=== PATIENT | female | born 1970 | race Caucasian/White ===

== ENCOUNTER 2020-01-29 14:30 | Emergency (ER) | payer BC, SELFPAY ==
[2020-01-29 14:45] VITALS: BP 167/97; PULSE 81; RESP 14; TEMP 36.8; O2SAT 98; BMI 45.4
--- NOTE | 2020-01-29 15:00 | XR_ITS ---
WS: [id number] Exam: XR chest 1V portable [id number] Date/Time of Exam: 01/29/2020 3:12 PM Reason For Exam: dyspnea/cough No priors. The lungs are clear and fully expanded. Normal cardiomediastinal structures and regional bony element s. No pleural effusion. XR/XR chest 1V portable [id number] IMPRESSION: 1. No acute cardiopulmonary finding.
--- NOTE | 2020-01-29 15:00 | ECG_ITS ---
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 Measurements Intervals [place] Rate: 79 P: 42 [place]: 167 QRS: 95 QRSD: 93 T: 28 QT: 390 QTc: 447 Interpretive Statements SINUS RHYTHM WITH SINUS ARRHYTHMIA BORDERLINE RIGHT AXIS DEVIATION [QRS AXIS > 90] LOW QRS VOLTAGE IN PRECORDIAL LEADS [QRS DEFLECTION < 1.0 mV IN CHEST LEADS] No previous ECG available for comparison Electronically Signed On 01-29-2020 18:27:59 PREVENTION SPECIALIST by Lynsey Gardner M.D. [id number]
--- NOTE | 2020-01-29 15:00 | CTR_ITS ---
PROCEDURE INFORMATION: Exam: CT Head Without Contrast Exam date and time: 01/29/2020 3:05 PM Age: 50 years old Clinical indication: Weakness, extremity and weakness, facial; Right; Prior surgery; Surgery type: Parotid; Patient HX: Onset of RT sided weakness yesterday. CO RT frontal temporal headache; Additional info: R side weakness TECHNIQUE: Imaging protocol: Computed tomography of the head without contrast. Radiation optimization: All CT scans at this facility use at least one of these dose optimization techniques: automated exposure control; mA and/or kV adjustment per patient size (includes targeted exams where dose is matched to clinical indication); or iterative reconstruction. Other technique: STROKE PROTOCOL was implemented. COMPARISON: No relevant prior studies available. RADIATION DOSE METRICS: Total DLP (mGy-cm): 756.88 FINDINGS: Brain: Normal. No hemorrhage. Unremarkable white matter. No mass effect. Cerebral ventricles: No ventriculomegaly. Bones/joints: Unremarkable. No acute fracture. Paranasal sinuses: Visualized sinuses are unremarkable. No fluid levels. Mastoid air cells: Visualized mastoid air cells are well aerated. Soft tissues: Unremarkable. CT/CT head wo con* [id number] IMPRESSION: No acute intracranial abnormality. ASSESSMENT: ASPECTS ([place] Stroke Program Early CT Score) is 10. Radiation Dose CTDIVOL = (mGy): DLP = 756.88 (mGy-cm)
--- NOTE | 2020-01-29 15:34 | ED_ITS ---
HPI - Neuro Symptoms/Deficit General: Chief Complaint: Neuro Symptoms/Deficit Stated Complaint: ref from urgent care/poss stroke Time Seen by Provider: 01/29/20 14:51 History of Present Illness: HPI Narrative: 50-year-old female presents emergency room with complaints of right-sided weakness this began yesterday she had some difficulty walking she is using a cane today initially it was her leg she said she got up and took a while and then with the assistance of a cane she could walk today with both the leg and the arm he also feels like she is stumbling over some of her words she also notes a little bit of visual difficulty but relates that to both eyes. She had single episode yesterday of feeling very sweaty not past has not recurred she denies any chest pain. She not had any flulike symptoms no dysuria urgency or frequency Onset (ago): day(s) Location: speech (Stumbling over words), right arm and right leg Severity: mild Quality: weak Relieving factors: none Exacerbating factors: none Context: sudden onset On Anticoagulants: No Associated symptoms: Reports weakness; Deny no associated symptoms, chest pain, cough, diaphoresis, fevers/chills, headache(s), anorexia, malaise, nausea, seizures, short of breath, syncope, tingling, vertigo or vomiting Review of Systems Const: Denies: malaise or diaphoresis ENMT: Denies: throat pain, ear or mastoid pain, nasal discharge or nasal congestion Card: Denies: chest pain or syncope Resp: Denies: dyspnea, productive cough or non-productive cough GI: Denies: nausea or vomiting : Denies: flank pain, difficulty voiding, dysuria, urinary frequency or urinary urgency Skin/Breast: Denies: rash or pruritus Neuro: Denies: headache(s) or vertigo PFSH ED PFSH: Medical History Celiac disease Endometriosis Parotid mass PCOS (polycystic ovarian syndrome) Surgical History Hx of cholecystectomy Previous section NIH stroke score NIHSS: Level Of Consciousness - 1a: 0 Level Of Consciousness Questions - 1b: Both Correct Level Of Consciousness Commands - 1c: Both Correct Best Gaze - 2: Normal Visual Cavazos - 3: No Visual Loss Facial Palsy - 4: Normal Motor Arm Right - 5: No Drift Motor Arm Left - 5: No Drift Motor Leg Right - 6: No Drift Motor Leg Left - 6: No Drift Limb Ataxia - 7: Absent Sensory - 8: Normal Best Language - 9: No Aphasia Dysarthia - 10: Normal Extinction And Inattention - 11: 0 Score: Total Score: 0 Physical Exam Const: COMMON NORMALS: no acute distress GENERAL APPEARANCE: cooperative and comfortable ORIENTATION/CONSCIOUSNESS: Yes awake, Yes oriented to person, Yes oriented to place and Yes oriented to time HENMT: COMMON NORMALS: normocephalic, atraumatic, hearing grossly normal bilaterally, external ears normal, EAC's normal, TM's normal bilaterally, Normal nasal mucous membranes and turbinates present, moist oral mucous membranes and oropharynx normal HEAD & SCALP: normocephalic and atraumatic NOSE: Normal nasal mucous membranes and turbinates present EXTERNAL EAR: Yes external ears normal EXTERNAL AUDITORY CANAL: EAC's normal TYMPANIC MEMBRANE: TM's normal bilaterally Eye: COMMON NORMALS: Equal, round and reactive pupils present, EOMs intact bilaterally, conjunctivae normal and no scleral icterus CONJUNCTIVA: Yes conjunctivae normal PUPIL: Yes Equal, round and reactive pupils present Neck/C-Spine: COMMON NORMALS: no JVD Lymph: LYMPHATIC: no lymphadenopathy noted and no lymphedema noted Resp: COMMON NORMALS: normal respiratory effort, No retractions, No use of accessory muscles and clear to auscultation bilaterally AUSCULTATION: clear to auscultation bilaterally Cardio: COMMON NORMALS: no JVD, regular rate, regular rhythm and No murmurs present (Cardio) RATE: regular rate RHYTHM: regular rhythm GI: COMMON NORMALS: Soft to palpation and No hepatosplenomegaly present AUSCULTATION: Yes normoactive bowel sounds PALPATION: Yes Soft to palpation, No Tenderness to palpation present (GI), No Guarding due to palpation present (GI) and Yes No hepatosplenomegaly present Extremity: COMMON NORMALS: normal to inspection, capillary refill normal, no clubbing, cyanosis or edema, no calf tenderness and no pedal edema Neuro: SENSORIUM/ORIENTATION: Yes oriented to person, Yes oriented to place and Yes oriented to time Skin: COMMON NORMALS: no rashes or lesions noted GENERAL SKIN EXAM: no rashes or lesions noted Course Vital Signs: Vital signs: Vital Signs Temperature 98.2 F 01/29/20 14:45 Pulse Rate 79 01/29/20 17:34 Respiratory Rate 15 01/29/20 17:34 Blood Pressure 129/87 01/29/20 17:34 Pulse Oximetry 96 01/29/20 17:34 MDM - Neuro Symptoms/Deficit MDM Narrative: Medical decision making narrative: Are Plavix. We will arrange for outpatient MRI head with and without contrast follow-up with PCP if has recurrent symptoms return. All of her symptoms have resolved she has a NIH score of 0 at initial evaluation and at the time of discharge. Lab Data: Labs: Lab Results 01/29/20 01/29/20 01/29/20 Range/Units 15:33 15:33 16:20 WBC 6.8 (4.0-10.0) 10^3/ uL RBC 5.55 H (4.1-5.3) 10^6/u L Hgb 15.8 H (11.5-15.3) g/dL Hct 49.0 H (37.0-47.0) % MCV 88.3 (81-99) fL MCH 28.5 (28.0-34.0) pg MCHC 32.2 (30.0-36.0) g/dL RDW 13.8 (12.1-15.1) % Plt Count 300 (130-400) 10^3/c mm MPV 8.9 (7.4-10.4) fL Neut % (Auto) 61.3 % Lymph % (Auto) 31.9 % [place] % (Auto) 4.3 % Eos % (Auto) 1.6 % Baso % (Auto) 0.6 % Neut # (Auto) 4.16 (1.8-7.7) 10^3/u L Lymph # (Auto) 2.2 (0.8-4.8) 10^3/u L [place] # (Auto) 0.3 (0.2-0.9) 10^3/u L Eos # (Auto) 0.1 (0.0-0.8) 10^3/u L Baso # (Auto) 0.0 (0.0-0.1) 10^3/u L Nucleated RBC % (a uto) 0 % Nucleated RBCs # 0.0 /100WBC Sodium 139 (136-145) mmol/L Potassium 3.9 (3.5-5.1) mmol/L Chloride 101 (98-107) mmol/L Carbon Dioxide 26 (22-29) mmol/L Anion Gap 15.9 (5-19) BUN 8 (6-20) mg/dL Creatinine 0.6 (0.5-0.9) mg/dL GFR Calculation 106.7 (90-130) mL/min Glucose 86 (65-115) mg/dL Calculated Osmolal ity 286 (285-295) mOsm/k g Calcium 9.6 (8.5-10.5) mg/dL Total Bilirubin 0.4 (0.15-1.2) mg/dL AST 23 (0-32) U/L ALT 25 (0-33) U/L Alkaline Phosphata se 79 (35-105) IU/L Total Protein 7.3 (6.6-8.7) g/dL Albumin 4.6 (3.5-5.2) g/dL Globulin 2.7 (1.3-4.6) g/dL Urine Color Yellow (Yellow) Urine Appearance Clear (CLEAR) Urine pH 5 (5-7) Ur Specific Gravit y 1.020 (1.005-1.030) Urine Protein Neg (Negative) Urine Glucose (UA) Norm (Normal) Urine Ketones Negative (Negative) Urine Blood Neg (Negative) Urine Nitrate Negative (Negative) Urine Bilirubin Neg (Negative) Urine Urobilinogen Norm (Negative) mg/dL Ur Leukocyte Sandy ase Negative (Negative) Discharge Plan Discharge Patient Disposition: Home Clinical Impression: Acute right-sided weakness, Elevated blood pressure, situational Condition: Stable Prescriptions: New Plavix 75 mg tablet 75 mg PO DAILY Qty: 30 RF: 0 No Action Tums See Rx Instructions .ROUTE .COMPLEX RF: 0 Discharge Orders: Discharge Order (Routine); Ordered 01/29/20 Ordered By: Mac Mackay Discharge Diet: Usual diet Discharge Activity: Increase activity as tolerated Activity Restrictions/Additional Instructions: Case management will follow up with you to schedule an MRI of the head follow-up with your primary care doctor after that is completed. Coding Level of Care Code ED Movement Education Specialist for g Fwd Exam Comprehensive
[2020-01-29 15:43] LABS: Basophils % 0.6 %; Eosinophils # 0.1 10^3/uL (0.0-0.8); Eosinophils % 1.6 %; Hemoglobin 15.8 g/dL (11.5-15.3); Lymphocytes # 2.2 10^3/uL (0.8-4.8); Lymphocytes % 31.9 %; Mean Corpuscular HGB Conc 32.2 g/dL (30.0-36.0); Mean Corpuscular Hemoglobin 28.5 pg (28.0-34.0); Mean Corpuscular Volume 88.3 fL (81-99); Mean Platelet Volume 8.9 fL (7.4-10.4); Monocytes # 0.3 10^3/uL (0.2-0.9); Monocytes % 4.3 %; Neutrophils # 4.16 10^3/uL (1.8-7.7); Neutrophils % 61.3 %; Nucleated Red Blood Cells % 0 %; Platelet Count 300 10^3/cmm (130-400); Red Blood Count 5.55 10^6/uL (4.1-5.3); Red Cell Distribution Width 13.8 % (12.1-15.1); White Blood Count 6.8 10^3/uL (4.0-10.0)
[2020-01-29 16:22] LABS: Alanine Aminotransferase 25 U/L (0-33); Albumin Level 4.6 g/dL (3.5-5.2); Alkaline Phosphatase 79 IU/L (35-105); Aspartate Amino Transferase 23 U/L (0-32); Blood Urea Nitrogen 8 mg/dL (6-20); Calcium 9.6 mg/dL (8.5-10.5); Carbon Dioxide 26 mmol/L (22-29); Chloride 101 mmol/L (98-107); Globulin 2.7 g/dL (1.3-4.6); Glomerular Filtration Rate 106.7 mL/min (90-130); Glucose 86 mg/dL (65-115); Osmolality Calculated 286 mOsm/kg (285-295); Sodium 139 mmol/L (136-145); Total Bilirubin 0.4 mg/dL (0.15-1.2); Total Protein 7.3 g/dL (6.6-8.7)
[2020-01-29 16:29] LABS: Add Urine Microscopic? NO
[2020-01-29 16:44] LABS: Bilirubin Urine Neg (Negative); Blood Urine Neg (Negative); Glucose Urine UA Norm (Normal); Ketones Urine Negative (Negative); Leukocyte Esterase Urine Negative (Negative); Nitrate Urine Negative (Negative); Protein Urine Neg (Negative); Urine Appearance Clear (CLEAR); Urine Color Yellow (Yellow); Urobilinogen Urine Norm (Negative); pH Urine 5 (5-7)
[2020-01-29 16:47] LABS: Anion Gap 15.9 (5-19)
[2020-01-29 16:48] LABS: Potassium 3.9 mmol/L (3.5-5.1)
[2020-01-29 17:34] VITALS: BP 129/87; PULSE 79; RESP 15; O2SAT 96
--- NOTE | 2020-01-30 15:28 | DCPLANNER ---
manager meeting had message to schedule an outpatient MRI for patient. manager meeting faxed order to centralized scheduling. manager meeting will call for appointment information.
--- NOTE | 2020-01-31 13:49 | DCPLANNER ---
The MRI ordered for patient has been cancelled. Patient is going to follow up with primary care physician. Primary care physician can order the MRI, if primary care physician feels that patient needs an MRI.
== END 2020-01-29 17:34 | disposition home or self-care (01) ==
PROVIDERS: Emergency Provider Family Medicine
DX: R53.1 Weakness (principal); R03.0 Elevated blood-pressure reading, without diagnosis of hypertension
CPT/HCPCS: 12345; 70450; 71045; 80053; 81003; 85025; 93005; 99282; 99283

== ENCOUNTER 2020-01-31 09:33 | Emergency (ER) | payer BC, SELFPAY ==
[2020-01-31 09:42] VITALS: BP 170/103; PULSE 83; RESP 18; TEMP 36.8; O2SAT 98; BMI 45.4
--- NOTE | 2020-01-31 10:30 | ED_ITS ---
HPI - Abdominal Pain General: Chief Complaint: Abdominal Pain Stated Complaint: Lower ABD Pain/Here recently for stroke related Time Seen by Provider: 01/31/20 09:56 History of Present Illness: HPI narrative: Patient is a 50-year-old comes to the ED with lower abdominal pain. Here on Wednesday, January 28 for strokelike symptoms. She was discharged on Plavix and has an appointment with PCP tomorrow. She just started taking the Plavix on Wednesday and says yesterday she started developing this lower abdominal pain that is midline. She says it is kind of a dull pain that she rates it a 5 out of 10. She was concerned about it potentially being a side effect from Plavix. She does state that her left kidney feels a little sore as well but denies any dysuria or hematuria. Endorses decreased urination over the past 2 days. She is also complaining of having a headache that is described as halo-like and goes all around the top of her head. She also endorses some mild nausea. Patient states she does not want any pain meds for her abdominal pain or headache. Associated Symptoms: Reports nausea; Denies chills, constipation, diarrhea, dysuria, fever(s), hematochezia, hematuria and vomiting Review of Systems Const: Denies: fever(s), chills or fatigue Eyes: Denies: change in vision or eye discomfort ENMT: Denies: throat pain, odynophagia, nasal discharge or nasal congestion Card: Denies: chest pain, palpitations, edema, swelling of feet/ankles, dyspnea on exertion or orthopnea Resp: Denies: dyspnea, productive cough or non-productive cough GI: Reports: abdominal pain and nausea; Denies: vomiting, diarrhea, constipation or hematochezia : Denies: flank pain, dysuria or hematuria Musc: Denies: neck pain, back pain or extremity swelling Skin/Breast: Denies: rash or new lesions Neuro: Reports: headache(s); Denies: numbness in extremities or weakness in extremities PFSH ED PFSH: Medical History Celiac disease Endometriosis Parotid mass PCOS (polycystic ovarian syndrome) Surgical History Hx of cholecystectomy Previous section Physical Exam Const: COMMON NORMALS: no acute distress, patient oriented x3 and alert GENERAL APPEARANCE: cooperative and comfortable NUTRITIONAL APPEARANCE: obese HENMT: COMMON NORMALS: normocephalic HEAD & SCALP: normocephalic MOUTH: Normal oral and palatal mucosa present THROAT: posterior oropharynx normal and uvula midline Eye: COMMON NORMALS: Equal, round and reactive pupils present PUPIL: Yes Equal, round and reactive pupils present Neck/C-Spine: COMMON NORMALS: supple GENERAL: Yes normal visual inspection Resp: COMMON NORMALS: normal respiratory effort, No retractions, No use of accessory muscles and clear to auscultation bilaterally AUSCULTATION: clear to auscultation bilaterally Cardio: COMMON NORMALS: regular rate, regular rhythm, S1 normal heart sound present, S2 normal heart sound present, No gallops present (Cardio), No clicks present (Cardio), No murmurs present (Cardio) and Peripheral pulses 2+ throughout RATE: regular rate RHYTHM: regular rhythm HEART SOUNDS: S1 normal heart sound present and S2 normal heart sound present PERIPHERAL PULSES: Peripheral pulses 2+ throughout GI: COMMON NORMALS: Normal to inspection, nondistended, normoactive bowel sounds present, Soft to palpation and no masses INSPECTION: Yes central obesity PALPATION: Yes Soft to palpation and Yes Tenderness to palpation present (GI) Details: other (Mild tenderness?mid lower abdomen over bladder.) : BLADDER/KIDNEY EXAM: Yes CVA tenderness on the left Extremity: COMMON NORMALS: normal to inspection Neuro: COMMON NORMALS: patient oriented x3 SENSORIUM/ORIENTATION: Yes alert GAIT: Yes Normal gait present Psych: MOOD & AFFECT: Yes anxious Skin: GENERAL SKIN EXAM: dry skin Course Vital Signs: Vital signs: Vital Signs Temperature 98.2 F 01/31/20 09:42 Pulse Rate 76 01/31/20 13:28 Respiratory Rate 20 H 01/31/20 13:28 Blood Pressure 161/89 01/31/20 13:28 Pulse Oximetry 98 01/31/20 13:28 MDM - Abdominal Pain MDM Narrative: Medical decision making narrative: Patient is a 50-year-old female who comes to the ED with lower abdominal pain. She was seen here in the ED January 28 and diagnosed with acute right-sided weakness. She is currently not having any worsening of right-sided weakness symptoms. She has a scheduled appointment with her PCP at 4 PM today. Patient just started taking Plavix 2 days ago and was concerned that maybe the lower abdominal pain was related to that. Patient appears in no acute distress but does seem a little anxious and worried about her symptoms. All labs were normal. Urinalysis was clean and negative for UTI. CT of abdomen was performed and it showed no acute findings, but mild constipation. She was follow-up with her PCP at her scheduled appointment at 4 PM. She was told to continue taking your home medications. Return to ED precautions given. Patient understood and agree with plan. Lab Data: Attestation: I reviewed the patient's lab results. Labs: Lab Results 01/31/20 01/31/20 01/31/20 Range/Units 10:32 10:32 10:32 WBC 6.0 (4.0-10.0) 10^3/ uL RBC 5.22 (4.1-5.3) 10^6/u L Hgb 14.8 (11.5-15.3) g/dL Hct 45.7 (37.0-47.0) % MCV 87.5 (81-99) fL MCH 28.4 (28.0-34.0) pg MCHC 32.4 (30.0-36.0) g/dL RDW 13.7 (12.1-15.1) % Plt Count 261 (130-400) 10^3/c mm MPV 8.8 (7.4-10.4) fL Neut % (Auto) 61.9 % Lymph % (Auto) 31.3 % [place] % (Auto) 3.8 % Eos % (Auto) 2.0 % Baso % (Auto) 0.5 % Neut # (Auto) 3.74 (1.8-7.7) 10^3/u L Lymph # (Auto) 1.9 (0.8-4.8) 10^3/u L [place] # (Auto) 0.2 (0.2-0.9) 10^3/u L Eos # (Auto) 0.1 (0.0-0.8) 10^3/u L Baso # (Auto) 0.0 (0.0-0.1) 10^3/u L Nucleated RBC % (a uto) 0 % Nucleated RBCs # 0.0 /100WBC Sodium 138 (136-145) mmol/L Potassium 4.1 (3.5-5.1) mmol/L Chloride 102 (98-107) mmol/L Carbon Dioxide 27 (22-29) mmol/L Anion Gap 13.1 (5-19) BUN 8 (6-20) mg/dL Creatinine 0.5 (0.5-0.9) mg/dL GFR Calculation 131.7 H (90-130) mL/min Glucose 94 (65-115) mg/dL Calculated Osmolal ity 284 L (285-295) mOsm/k g Calcium 9.0 (8.5-10.5) mg/dL Total Bilirubin 0.2 (0.15-1.2) mg/dL AST 17 (0-32) U/L ALT 21 (0-33) U/L Alkaline Phosphata se 72 (35-105) IU/L Total Protein 6.9 (6.6-8.7) g/dL Albumin 4.3 (3.5-5.2) g/dL Globulin 2.6 (1.3-4.6) g/dL Lipase 15 (13-60) U/L HCG, Qual Negative (Negative) Urine Color (Yellow) Urine Appearance (CLEAR) Urine pH (5-7) Ur Specific Gravit y (1.005-1.030) Urine Protein (Negative) Urine Glucose (UA) (Normal) Urine Ketones (Negative) Urine Blood (Negative) Urine Nitrate (Negative) Urine Bilirubin (Negative) Urine Urobilinogen (Negative) mg/dL Ur Leukocyte Sandy ase (Negative) Urine RBC (0-2) /hpf Urine WBC (0-5) /hpf Ur Squamous Epith Cells (0-5) /hpf Amorphous Sediment Urine Bacteria (NONE) /hpf /18/20 Range/Units 10:47 WBC (4.0-10.0) 10^3/ uL RBC (4.1-5.3) 10^6/u L Hgb (11.5-15.3) g/dL Hct (37.0-47.0) % MCV (81-99) fL MCH (28.0-34.0) pg MCHC (30.0-36.0) g/dL RDW (12.1-15.1) % Plt Count (130-400) 10^3/c mm MPV (7.4-10.4) fL Neut % (Auto) % Lymph % (Auto) % [place] % (Auto) % Eos % (Auto) % Baso % (Auto) % Neut # (Auto) (1.8-7.7) 10^3/u L Lymph # (Auto) (0.8-4.8) 10^3/u L [place] # (Auto) (0.2-0.9) 10^3/u L Eos # (Auto) (0.0-0.8) 10^3/u L Baso # (Auto) (0.0-0.1) 10^3/u L Nucleated RBC % (a uto) % Nucleated RBCs # /100WBC Sodium (136-145) mmol/L Potassium (3.5-5.1) mmol/L Chloride (98-107) mmol/L Carbon Dioxide (22-29) mmol/L Anion Gap (5-19) BUN (6-20) mg/dL Creatinine (0.5-0.9) mg/dL GFR Calculation (90-130) mL/min Glucose (65-115) mg/dL Calculated Osmolal ity (285-295) mOsm/k g Calcium (8.5-10.5) mg/dL Total Bilirubin (0.15-1.2) mg/dL AST (0-32) U/L ALT (0-33) U/L Alkaline Phosphata se (35-105) IU/L Total Protein (6.6-8.7) g/dL Albumin (3.5-5.2) g/dL Globulin (1.3-4.6) g/dL Lipase (13-60) U/L HCG, Qual (Negative) Urine Color Yellow (Yellow) Urine Appearance Clear (CLEAR) Urine pH 6 (5-7) Ur Specific Gravit y 1.020 (1.005-1.030) Urine Protein Neg (Negative) Urine Glucose (UA) Norm (Normal) Urine Ketones Negative (Negative) Urine Blood Neg (Negative) Urine Nitrate Negative (Negative) Urine Bilirubin Neg (Negative) Urine Urobilinogen Norm (Negative) mg/dL Ur Leukocyte Sandy ase Negative (Negative) Urine RBC 0-4 H (0-2) /hpf Urine WBC None (0-5) /hpf Ur Squamous Epith Cells 0-4 H (0-5) /hpf Amorphous Sediment Not Reportable Urine Bacteria Trace (NONE) /hpf Imaging Data ^: CT Abd/Pel: Attestation: I personally reviewed and interpreted this imaging study as follows: Radiologist's impression: [address] [address] [address] Scan Report Signed Patient: Sena Velasquez Unit #: [id number] : 1970 Age/Sex: 50 / F ADM Date: 01/31/20 Loc: ER Room/Bed: Attending Dr: Ordering Provider/Ordering MD: Kwabena Hassan Date of Service: 01/31/20 Procedure(s): CT abdomen pelvis w con* [id number] Accession Number(s): [id number] Report Number: [id number] WS: [id number] CT ABDOMEN AND PELVIS WITH CONTRAST HISTORY: lower abdominal pain TECHNIQUE: Imaging performed of the abdomen and pelvis with IV contrast. Single phase imaging of the abdomen. Coronal and sagittal reformats are submitted. All CT scans at [facility] use at least one of these dose optimization techniques: automated exposure control; mA and/or kV adjustment per patient size (includes targeted exams where dose is matched to clinical indication); or iterative reconstruction. IV CONTRAST: Omnipaque 300; 95 mL IV. Oral contrast: No DLP: 1603.91 mGy.cm COMPARISON: None available. Lower thorax: Lung bases are clear. Heart is normal size. No hiatal hernia. Liver/biliary system: Normal size with no intrahepatic dilatation. Gallbladder: Status post cholecystectomy. Pancreas: Normal. Spleen: Normal. Adrenal glands: Normal. Right kidney: Normal. Left kidney: Too small to characterize 3 mm hypodensity in the central kidney. No obstruction or solid mass. Aorta: Normal. Lymphadenopathy: None. Free fluid: None. GI tract: Normal appendix. No GI tract obstruction. Moderate fecal retention throughout the transverse colon. Abdominal wall: Unremarkable abdominal wall. No hernia. Pelvis: Normal. Bones: Mild LEFT convex curvature of the lumbar spine. CT/CT abdomen pelvis w con* [id number] IMPRESSION: 1. No acute abdominal or pelvic abnormalities. 2. No free fluid or adenopathy. 3. Normal appendix. 4. Mild constipation. 5. Prior cholecystectomy and hysterectomy. Dictated By: Ashlee Cardona DO Signed By: Ashlee Cardona DO Signed Date/Time: 01/31/20 1238 DD/ 1231 Discharge Plan Discharge Patient Disposition: Home Clinical Impression: Abdominal pain Qualifiers: Abdominal location: lower abdomen, unspecified Qualified Code(s): R10.30 - Lower abdominal pain, unspecified Constipation Qualifiers: Constipation type: unspecified constipation type Qualified Code(s): K59.00 - Constipation, unspecified Condition: Stable Prescriptions: No Action Tums See Rx Instructions .ROUTE .COMPLEX PRN (Reason: Heartburn) RF: 0 clopidogrel [Plavix] 75 mg tablet 75 mg PO DAILY Qty: 30 RF: 0 Discharge Orders: Discharge Order (Routine); Ordered 01/31/20 Ordered By: Kwabena Hassan Referrals: Blanca Merchant MD [Primary Care Provider] - Discharge Diet: Regular Discharge Activity: Resume usual activity Patient Instructions: Constipation (ED), Abdominal Pain (ED) Activity Restrictions/Additional Instructions: Follow-up with medical provider as directed. Go to your scheduled PCP appointm ent today and make sure to let them know about the MRI referral. Continue taking home medications as prescribed. You can take [id number] [id number] to help with any constipation as needed. Return to the ER or your medical provider if condition worsens. Please read and understand discharge instructions. If any questions, please ask. Coding Level of Care Code ED Filter Changer for Mara Fwd Exam Comprehensive
[2020-01-31 10:40] LABS: Basophils % 0.5 %; Eosinophils # 0.1 10^3/uL (0.0-0.8); Hematocrit 45.7 % (37.0-47.0); Hemoglobin 14.8 g/dL (11.5-15.3); Lymphocytes # 1.9 10^3/uL (0.8-4.8); Lymphocytes % 31.3 %; Mean Corpuscular HGB Conc 32.4 g/dL (30.0-36.0); Mean Corpuscular Hemoglobin 28.4 pg (28.0-34.0); Mean Corpuscular Volume 87.5 fL (81-99); Mean Platelet Volume 8.8 fL (7.4-10.4); Monocytes # 0.2 10^3/uL (0.2-0.9); Monocytes % 3.8 %; Neutrophils # 3.74 10^3/uL (1.8-7.7); Neutrophils % 61.9 %; Nucleated Red Blood Cells % 0 %; Platelet Count 261 10^3/cmm (130-400); Red Blood Count 5.22 10^6/uL (4.1-5.3); Red Cell Distribution Width 13.7 % (12.1-15.1)
[2020-01-31 10:50] LABS: HCG, Serum Qual Negative (Negative)
[2020-01-31 10:56] LABS: Alanine Aminotransferase 21 U/L (0-33); Albumin Level 4.3 g/dL (3.5-5.2); Alkaline Phosphatase 72 IU/L (35-105); Anion Gap 13.1 (5-19); Aspartate Amino Transferase 17 U/L (0-32); Blood Urea Nitrogen 8 mg/dL (6-20); Carbon Dioxide 27 mmol/L (22-29); Chloride 102 mmol/L (98-107); Globulin 2.6 g/dL (1.3-4.6); Glomerular Filtration Rate 131.7 mL/min (90-130); Glucose 94 mg/dL (65-115); Lipase 15 U/L (13-60); Osmolality Calculated 284 mOsm/kg (285-295); Potassium 4.1 mmol/L (3.5-5.1); Sodium 138 mmol/L (136-145); Total Bilirubin 0.2 mg/dL (0.15-1.2); Total Protein 6.9 g/dL (6.6-8.7)
[2020-01-31 11:50] LABS: Bacteria Urine TRACE /hpf; Bilirubin Urine Neg (Negative); Blood Urine Neg (Negative); Glucose Urine UA Norm (Normal); Ketones Urine Negative (Negative); Leukocyte Esterase Urine Negative (Negative); Nitrate Urine Negative (Negative); Protein Urine Neg (Negative); RBC Urine 0-4 /hpf (0-2); Squamous Epithelial Cell Urine 0-4 /hpf (0-5); Urine Appearance Clear (CLEAR); Urine Color Yellow (Yellow); Urobilinogen Urine Norm (Negative); pH Urine 6 (5-7)
[2020-01-31 11:51] LABS: Add Urine Culture? No
--- NOTE | 2020-01-31 11:57 | CT_ITS ---
WS: [id number] CT ABDOMEN AND PELVIS WITH CONTRAST HISTORY: lower abdominal pain TECHNIQUE: Imaging performed of the abdomen and pelvis with IV contrast. Single phase imaging of the abdomen. Coronal and sagittal reformats are submitted. All CT scans at [facility] use at least one of these dose optimization techniques: automated exposure control; mA and/or kV adjustment per patient size (includes targeted exams where dose is matched to clinical indication); or iterativ e reconstruction. IV CONTRAST: Omnipaque 300; 95 mL IV. Oral contrast: No DLP: 1603.91 mGy.cm COMPARISON: None available. Lower thorax: Lung bases are clear. Heart is normal size. No hiatal hernia. Liver/biliary system: Normal size with no intrahepatic dilatation. Gallbladder: Status post cholecystectomy. Pancreas: Normal. Spleen: Normal. Adrenal glands: Normal. Right kidney: Normal. Left kidney: Too small to characterize 3 mm hypodensity in the central kidney. No obstruction or tristian d mass. Aorta: Normal. Lymphadenopathy: None. Free fluid: None. GI tract: Normal appendix. No GI tract obstruction. Moderate fecal retention throughout the transvers e colon. Abdominal wall: Unremarkable abdominal wall. No hernia. Pelvis: Normal. Bones: Mild LEFT convex curvature of the lumbar spine. CT/CT abdomen pelvis w con* [id number] IMPRESSION: 1. No acute abdominal or pelvic abnormalities. 2. No free fluid or adenopathy. 3. Normal appendix. 4. Mild constipation. 5. Prior cholecystectomy and hysterectomy.
[2020-01-31] MEDS: iohexol 300 mg/mL 100 mL Btl IV (12:20)
--- NOTE | 2020-01-31 12:33 | PC.NURSE ---
patient ambulated to restroom without assist
[2020-01-31 13:28] VITALS: BP 161/89; PULSE 76; RESP 20; O2SAT 98
== END 2020-01-31 13:29 | disposition home or self-care (01) ==
PROVIDERS: Emergency Provider Physician Assistant; PCP Family Medicine
DX: K59.00 Constipation, unspecified (principal); R10.30 Lower abdominal pain, unspecified
CPT/HCPCS: 12345; 74177; 80053; 81001; 83690; 84703; 85025; 87040; 99281; 99283; Q9967

== ENCOUNTER 2020-02-27 13:16 | Outpatient (CLI) | payer SELFPAY ==
--- NOTE | 2020-02-27 13:45 | MR_ITS ---
WS: [id number] MRI HEAD WITH CONTRAST TECHNIQUE: Sagittal T1, T2 axial, T2 axial FLAIR, axial susceptibility weighted imaging, axial diffus ion weighted images, and coronal T2 images were obtained. Pre and post-T1 axial and post T1 coronal i mages. ADC and FSPGR images. CLINICAL INFORMATION: headache COMPARISON: January 29, 2020 FINDINGS: No evidence of restricted diffusion to suggest acute ischemia. Ventricular system and basal cisterns are patent. Mild patchy supratentorial white matter changes nonspecific in a patient this age but can be seen with hypertension, diabetes, and migraine headaches. Normal posterior fossa. Normal vascular flow voids at the skull base. No extra-axial fluid collections. No evidence of mass or mass effect. Paranasal sinuses and mastoid air cells are well well-aerated. No hemosiderin on susceptibly weighted images. Normal optic chiasm and pituitary infundibulum. Tempor al lobes and hippocampal formations are normal in appearance. Normal cavernous sinuses and Meckel's c ave. Prior right parotidectomy. No abnormal gadolinium enhancement. Dural venous sinuses are normal. A few prominent intraparotid lymph nodes nonspecific but likely reactive. MR/MR head wo/w con [id number] IMPRESSION: 1. No evidence of restricted diffusion to suggest acute ischemia. 2. Mild supratentorial white matter changes nonspecific in a patient this age but can be seen with hypertension, diabetes and migraine headaches. 3. Prior postoperative changes right parotidectomy. 4. No abnormal gadolinium enhancement. 5. No other significant findings.
== END 2020-02-27 13:17 | disposition home or self-care (01) ==
LOC: RADSHAW 13:20
PROVIDERS: PCP Family Medicine; Visit Provider Family Medicine
DX: R51.9 Headache, unspecified (principal)
CPT/HCPCS: 70553; A9579

== ENCOUNTER 2021-07-13 | Outpatient (RCR) | payer BC, SELFPAY | END 2021-08-12 23:59 | disposition home or self-care (01) | LOC: TPT | PROVIDERS: PCP Family Medicine; Referring Provider Chiropractor; Visit Provider Chiropractor | DX: M25.561 Pain in right knee (principal) | CPT/HCPCS: 97110; 97163 ==

== ENCOUNTER 2021-08-13 06:00 | Outpatient (RCR) | payer BC, SELFPAY | END 2021-09-11 23:59 | disposition home or self-care (01) | LOC: TPT 06:00 | PROVIDERS: PCP Family Medicine; Referring Provider Chiropractor; Visit Provider Chiropractor | DX: M54.6 Pain in thoracic spine (principal); M54.31 Sciatica, right side | CPT/HCPCS: 97110 ==

== ENCOUNTER 2021-09-12 06:00 | Outpatient (RCR) | payer BC, SELFPAY | END 2021-10-12 23:59 | disposition home or self-care (01) | LOC: TPT 06:00 | PROVIDERS: PCP Family Medicine; Referring Provider Chiropractor; Visit Provider Chiropractor | DX: M54.6 Pain in thoracic spine (principal); M54.31 Sciatica, right side | CPT/HCPCS: 97110 ==

== ENCOUNTER 2021-10-13 06:00 | Outpatient (RCR) | payer BC, SELFPAY | END 2021-11-12 23:59 | disposition home or self-care (01) | LOC: TPT 06:00 | PROVIDERS: PCP Family Medicine; Referring Provider Chiropractor; Visit Provider Chiropractor | DX: M54.6 Pain in thoracic spine (principal); M54.31 Sciatica, right side | CPT/HCPCS: 97110 ==

== ENCOUNTER 2021-11-13 06:00 | Outpatient (RCR) | payer BC, SELFPAY | END 2021-11-14 23:59 | disposition home or self-care (01) | LOC: TPT 06:00 | PROVIDERS: PCP Family Medicine; Visit Provider Chiropractor | DX: M54.6 Pain in thoracic spine (principal); M54.31 Sciatica, right side | CPT/HCPCS: 97110; 97164 ==

== ENCOUNTER 2022-01-25 09:54 | Emergency (ER) | payer BC, SELFPAY ==
[2022-01-25] VITALS (7 sets, daily range): BP systolic 153–188; BP diastolic 89–125; PULSE 85–93; RESP 16–20; TEMP 36.6; O2SAT 96–98; BMI 49.1
--- NOTE | 2022-01-25 10:00 | XRR_ITS ---
PROCEDURE INFORMATION: Exam: XR Chest Exam date and time: 01/25/2022 11:13 AM Age: 52 years old Clinical indication: Pain; Chest pressure; Additional info: Chest pain TECHNIQUE: Imaging protocol: Radiologic exam of the chest. Views: 1 view. COMPARISON: CR XR chest 1V portable [id number] 01/29/2020 3:11 PM FINDINGS: Lungs: Normal lung volumes. No interstitial or airspace opacities. Pleural spaces: No pleural effusion. No pneumothorax. Heart/Mediastinum: Normal heart size. Normal mediastinal contour. Midline trachea. Bones/joints: No acute abnormalities. XR/XR chest 1V portable [id number] IMPRESSION: No chest radiographic evidence of acute cardiopulmonary disease.
--- NOTE | 2022-01-25 10:09 | ECG_ITS ---
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 Measurements Intervals [place] Rate: 86 P: 38 [place]: 169 QRS: 48 QRSD: 97 T: 8 QT: 394 QTc: 472 Interpretive Statements SINUS RHYTHM INDETERMINATE AXIS Nonspecific T wave changes in the precordial leads. POSSIBLE ANTERIOR MYOCARDIAL INFARCTION , OF INDETERMINATE AGE [30 ms Q WAVE IN V3/V4, OR R < 0.2 mV IN V4] Compared to ECG 01/29/2020 15:52:36 Indeterminate axis now present Myocardial infarct finding now present Sinus arrhythmia no longer present Electronically Signed On 01-25-2022 22:15:43 [employer] by Lynsey Gardner M.D. [id number]
--- NOTE | 2022-01-25 10:36 | ED_ITS ---
HPI - Chest Pain General: Chief Complaint: Chest Pain Stated Complaint: Chest Pain Time Seen by Provider: 01/25/22 09:59 Source: patient Mode of arrival: ambulatory History of Present Illness: 52-year-old female presents emergency room for chest pain is been going on for 5 days. She states it began while she was eating a gourmet meal that her had made 5 days ago that she thought was higher in sodium than her normal paleo diet which she has not resumed. She feels this may have precipitated her chest pain and continued it. Has been having chest pain since that time she also states she has not been able to sleep. She tells me she has tried several different herbs and melatonin with no relief. She has not noticed anything that is exacerbated or relieved her chest comfort discomfort. She tells me she has been in contact with her psychologist and her primary care doctor none of the recommendations I offered a seem to help. She tells me she has tried relaxation techniques grounding techniques meditation and various other homeopathic methods with no relief of symptoms. She is not diabetic she has not had any known previous coronary artery disease she does not smoke she is morbidly obese. She tells me that since she had chemotherapy for endometriosis over 10 years ago she has had chronic swelling in her legs. She feels like her left leg is slightly more swollen but has not been tender. She has had some associated nausea but no radiation of the discomfort. She is extremely tearful and mildly hypertensive on presentation. Oxygen saturations are normal she denies any shortness of breath. MD complaint: chest pain Timing of current episode: episodic Prior episodes: Yes Onset: during rest Pain location: substernal Pain radiation: none Quality: tightness and aching Relieving factors: nothing Exacerbating factors: nothing Associated symptoms: Reports leg edema and sense of impending doom; Deny abdominal pain, diaphoresis, dyspnea, fever(s), nausea, palpitations, syncope or vomiting Treatment prior to arrival: other (Melatonin, herbs, grounding techniques and meditation) Review of Systems Const: Denies: fever(s), chills, fatigue, malaise or diaphoresis ENMT: Denies: throat pain, ear or mastoid pain, nasal discharge or nasal congestion Card: Denies: palpitations or syncope Resp: Denies: dyspnea GI: Denies: abdominal pain, nausea or vomiting : Denies: flank pain, difficulty voiding, dysuria, urinary frequency or urinary urgency Skin/Breast: Denies: rash or pruritus PFSH ED PFSH: Medical History Celiac disease Endometriosis Parotid mass PCOS (polycystic ovarian syndrome) Surgical History Hx of cholecystectomy Previous section Physical Exam Const: GENERAL APPEARANCE: cooperative and comfortable ORIENTATION/CONSCIOUSNESS: Yes awake, Yes oriented to person, Yes oriented to place and Yes oriented to time HENMT: COMMON NORMALS: normocephalic, atraumatic and hearing grossly normal bilaterally HEAD & SCALP: normocephalic and atraumatic Resp: COMMON NORMALS: normal respiratory effort, No retractions, No use of accessory muscles and clear to auscultation bilaterally AUSCULTATION: clear to auscultation bilaterally Cardio: COMMON NORMALS: regular rate, regular rhythm and No murmurs present (Cardio) RATE: regular rate RHYTHM: regular rhythm GI: COMMON NORMALS: Soft to palpation and No hepatosplenomegaly present AUSCULTATION: Yes normoactive bowel sounds PALPATION: Yes Soft to palpation, No Tenderness to palpation present (GI), No Guarding due to palpation present (GI) and Yes No hepatosplenomegaly present Extremity: COMMON NORMALS: normal to inspection, capillary refill normal, no clubbing, cyanosis or edema, no calf tenderness and no pedal edema Neuro: SENSORIUM/ORIENTATION: Yes oriented to person, Yes oriented to place and Yes oriented to time Skin: COMMON NORMALS: no rashes or lesions noted GENERAL SKIN EXAM: no rashes or lesions noted Course Vital Signs: Vital signs: Vital Signs Temperature 97.8 F 01/25/22 10:01 Pulse Rate 92 01/25/22 13:45 Respiratory Rate 16 01/25/22 11:47 Blood Pressure 165/95 01/25/22 13:45 Pulse Oximetry 98 01/25/22 13:45 Oxygen Delivery Ne thod 01/25/22 10:35 MDM - Chest Pain Medical Decision Making Labs imaging and EKGs reviewed. No acute changes on EKG troponins unremarkable. Will discharge patient home set up for outpatient sestamibi stress test. Medical Records I reviewed the patient's medical records. Lab Data I reviewed the patient's lab results. 01/25/22 10:45 01/25/22 11:20 Radiology Impressions Chest X-Ray 01/25/22 10:00 IMPRESSION: No chest radiographic evidence of acute cardiopulmonary disease. Laboratory Results WBC 9.0 10^3/uL (4.0-10.0) 01/25/22 10:45 RBC 5.50 10^6/uL (4.1-5.3) H 01/25/22 10:45 Hgb 15.7 g/dL (11.5-15.3) H 01/25/22 10:45 Hct 48.4 % (37.0-47.0) H 01/25/22 10:45 MCV 88.0 fl (81-99) 01/25/22 10:45 MCH 28.5 pg (28.0-34.0) 01/25/22 10:45 MCHC 32.4 g/dL (30.0-36.0) 01/25/22 10:45 RDW 13.8 % (12.1-15.1) 01/25/22 10:45 Plt Count 288 10^3/cmm (130-400) 01/25/22 10:45 MPV 9.2 fL (7.4-10.4) 01/25/22 10:45 Neut % (Auto) 70.9 % 01/25/22 10:45 Lymph % (Auto) 24.2 % 01/25/22 10:45 Phillips % (Auto) 4.0 % 01/25/22 10:45 Eos % (Auto) 0.4 % 01/25/22 10:45 Baso % (Auto) 0.3 % 01/25/22 10:45 Neut # (Auto) 6.35 10^3/uL (1.8-7.7) 01/25/22 10:45 Lymph # (Auto) 2.2 10^3/uL (0.8-4.8) 01/25/22 10:45 Phillips # (Auto) 0.4 10^3/uL (0.2-0.9) 01/25/22 10:45 Eos # (Auto) 0.0 10^3/uL (0.0-0.8) 01/25/22 10:45 Baso # (Auto) 0.0 10^3/uL (0.0-0.1) 01/25/22 10:45 Nucleated RBC % (auto) 0 % 01/25/22 10:45 Nucleated RBCs # 0.0 /100WBC 01/25/22 10:45 Sodium 138 mmol/L (136-145) 01/25/22 11:20 Potassium 3.8 mmol/L (3.5-5.1) 01/25/22 11:20 Chloride 104 mmol/L (98-107) 01/25/22 11:20 Carbon Dioxide 20 mmol/L (22-29) L 01/25/22 11:20 Anion Gap 17.8 (5-19) 01/25/22 11:20 BUN 7 mg/dL (6-20) 01/25/22 11:20 Creatinine 0.6 mg/dL (0.5-0.9) 01/25/22 11:20 GFR Calculation 105.8 mL/min (90-130) 01/25/22 11:20 Glucose 106 mg/dL (65-115) 01/25/22 11:20 Calculated Osmolality 284 mOsm/kg (285-295) L 01/25/22 11:20 Calcium 9.2 mg/dL (8.5-10.5) 01/25/22 11:20 Total Bilirubin 0.4 mg/dL (0.15-1.2) 01/25/22 11:20 AST 25 U/L (0-32) 01/25/22 11:20 ALT 28 U/L (0-33) 01/25/22 11:20 Alkaline Phosphatase 74 U/L (35-105) 01/25/22 11:20 Troponin T Baseline 6 ng/L (0-10) 01/25/22 11:20 Troponin T 120 Minute 6.00 ng/L (0-10) 01/25/22 12:45 Delta Troponin T 0 ABS# (0-10) 01/25/22 12:45 Total Protein 6.5 g/dL (6.6-8.7) L 01/25/22 11:20 Albumin 3.9 g/dL (3.5-5.2) 01/25/22 11:20 Globulin 2.6 g/dL (1.3-4.6) 01/25/22 11:20 Discharge Plan Discharge Patient Disposition: Home Clinical Impression: Chest pain, Anxiety, Elevated BP without diagnosis of hypertension Condition: Stable Prescriptions: No Action spironolactone 25 mg Tablet 25 mg PO DAILY psyllium seed (sugar) Powder 1 tbsp PO DAILY melatonin 5 mg Tablet 5 mg PO BEDTIME Vitamin D3 50 mcg (2,000 unit) Capsule 50 mcg PO DAILY Fish Oil 1,200 (144-216) mg Capsule 1 cap PO DAILY Multivitamin Women 50 Plus 8 mg iron-400 mcg-300 mcg Tablet 1 tab PO DAILY Probiotic 3 billion cell Capsule 3,000 mmu cells PO DAILY Rx Instructions: administer with a meal Melaleuca Bone/Joint 1 tab PO BID Discharge Orders: Discharge ED (Routine); Ordered 01/25/22 Ordered By: Mac Mackay Referrals: Ninfa Dial, [Primary Care Provider] - Discharge Diet: Usual diet Discharge Activity: Increase activity as tolerated Patient Instructions: Opioid Safety, Pain Management Activity Restrictions/Additional Instructions: You are seen in the emergency room for an episode of chest pain. Your cardiac enzymes and EKG were unremarkable remainder of your labs did not show any significant abnormalities. To complete work-up Case management will make arrangements for you to have an outpatient Lexiscan sestamibi stress test. Follow-up with your primary care doctor on your elevated blood pressure. Since she reported side effects of melatonin we did not prescribe any sleep aid or anxiety medicine for you in the emergency room would recommend that you follow- up with your primary care doctor regarding those. In the meantime you can use Benadryl [id number] for sleep if needed. Coding Level of Care Code ED Wire Drawing [employer] for Mara Fwluzmaria Exam Detailed
--- NOTE | 2022-01-25 10:51 | PC.NURSE ---
rechecked pts bood pressure o lower arm were cuff fit more appropriately and bp was 156/89
[2022-01-25 11:10] LABS: Basophils % 0.3 %; Eosinophils % 0.4 %; Hematocrit 48.4 % (37.0-47.0); Hemoglobin 15.7 g/dL (11.5-15.3); Lymphocytes # 2.2 10^3/uL (0.8-4.8); Lymphocytes % 24.2 %; Mean Corpuscular HGB Conc 32.4 g/dL (30.0-36.0); Mean Corpuscular Hemoglobin 28.5 pg (28.0-34.0); Mean Platelet Volume 9.2 fL (7.4-10.4); Monocytes # 0.4 10^3/uL (0.2-0.9); Neutrophils # 6.35 10^3/uL (1.8-7.7); Neutrophils % 70.9 %; Nucleated Red Blood Cells % 0 %; Platelet Count 288 10^3/cmm (130-400); Red Cell Distribution Width 13.8 % (12.1-15.1)
[2022-01-25 11:46] LABS: Troponin(5th) Baseline 6 ng/L (0-10)
[2022-01-25 11:53] LABS: Alanine Aminotransferase 28 U/L (0-33); Albumin Level 3.9 g/dL (3.5-5.2); Alkaline Phosphatase 74 U/L (35-105); Blood Urea Nitrogen 7 mg/dL (6-20); Calcium 9.2 mg/dL (8.5-10.5); Carbon Dioxide 20 mmol/L (22-29); Chloride 104 mmol/L (98-107); Creatinine Clr Calc Pharmacy 150.0087; Globulin 2.6 g/dL (1.3-4.6); Glomerular Filtration Rate 105.8 mL/min (90-130); Glucose 106 mg/dL (65-115); Osmolality Calculated 284 mOsm/kg (285-295); Sodium 138 mmol/L (136-145); Total Bilirubin 0.4 mg/dL (0.15-1.2); Total Protein 6.5 g/dL (6.6-8.7)
[2022-01-25 11:59] LABS: Anion Gap 17.8 (5-19); Potassium 3.8 mmol/L (3.5-5.1)
[2022-01-25 12:00] LABS: Aspartate Amino Transferase 25 U/L (0-32)
[2022-01-25 13:21] LABS: Troponin 5 2HR Delta 0 ABS# (0-10)
--- NOTE | 2022-01-26 08:24 | PC.SOCIAL ---
Cardiology Referral Consults received for cardiology follow-up. Referral sent at this time. Clinic to contact patient with appt date/time.
--- NOTE | 2022-01-26 11:22 | PC.SOCIAL ---
Addendum entered by Ros Wolff 05/26/22 17:58: This appointment was cancelled Addendum entered by Ros Wolff 03/12/22 15:35: Patient has an outpatient stress test scheduled for April at 6:45. Centralized scheduling will call patient with appointment information. Original Note: Stress Test Orders for stress test sent to centralized scheduling.
== END 2022-01-25 13:50 | disposition home or self-care (01) ==
PROVIDERS: Emergency Provider Family Medicine; PCP Family Medicine
DX: R07.9 Chest pain, unspecified (principal); R03.0 Elevated blood-pressure reading, without diagnosis of hypertension
CPT/HCPCS: 71045; 80053; 84484; 85025; 93005; 99285

== ENCOUNTER 2022-01-27 06:00 | Outpatient (RCR) | payer BC, SELFPAY | END 2022-02-11 23:59 | disposition home or self-care (01) | LOC: SPT 06:00 | PROVIDERS: PCP Family Medicine; Visit Provider Family Medicine | DX: I89.0 Lymphedema, not elsewhere classified (principal) | CPT/HCPCS: 97161 ==

== ENCOUNTER 2022-04-23 06:00 | Outpatient (RCR) | payer BC, SELFPAY | END 2022-05-12 23:59 | disposition home or self-care (01) | LOC: TPT 06:00 | PROVIDERS: PCP Family Medicine; Visit Provider Family Medicine | DX: R29.898 Other symptoms and signs involving the musculoskeletal system (principal) | CPT/HCPCS: 97110; 97163 ==

== ENCOUNTER 2022-05-13 06:00 | Outpatient (RCR) | payer BC, SELFPAY | END 2022-06-12 23:59 | disposition home or self-care (01) | LOC: TPT 06:00 | PROVIDERS: PCP Family Medicine; Visit Provider Family Medicine | DX: R29.898 Other symptoms and signs involving the musculoskeletal system (principal) | CPT/HCPCS: 97110 ==

== ENCOUNTER 2022-06-13 06:00 | Outpatient (RCR) | payer BC, SELFPAY | END 2022-07-12 23:59 | disposition home or self-care (01) | LOC: TPT 06:00 | PROVIDERS: PCP Family Medicine; Visit Provider Family Medicine | DX: R29.898 Other symptoms and signs involving the musculoskeletal system (principal); R53.1 Weakness | CPT/HCPCS: 97110; 97164 ==

== ENCOUNTER 2022-07-13 06:00 | Outpatient (RCR) | payer BC, SELFPAY | END 2022-08-12 23:59 | disposition home or self-care (01) | LOC: TPT 06:00 | PROVIDERS: PCP Family Medicine; Visit Provider Family Medicine | DX: R29.898 Other symptoms and signs involving the musculoskeletal system (principal) | CPT/HCPCS: 97110 ==

== ENCOUNTER 2022-08-13 06:00 | Outpatient (RCR) | payer BC, SELFPAY | END 2022-08-25 23:59 | disposition home or self-care (01) | LOC: TPT 06:00 | PROVIDERS: PCP Family Medicine; Visit Provider Family Medicine | DX: R29.898 Other symptoms and signs involving the musculoskeletal system (principal) | CPT/HCPCS: 97110 ==